=== PATIENT | female | born 1990 | race Caucasian/White ===

== ENCOUNTER 2021-10-31 11:01 | Observation (INO) | payer MEDICAID ==
[~2021-10-31] VITALS: Ht 152.4 cm; Wt 53.1 kg
[2021-10-31 11:43] VITALS: BP 109/76
[2021-10-31] MEDS ORDERED: TERBUTALINE 1 MG/ML VIAL SUBQ SCH (12:00)
[2021-10-31] MEDS ORDERED: NACL 0.9% 1,000 ML IV SCH (12:00)
== END 2021-10-31 14:30 | disposition home or self-care (01) ==
LOC: MLD 11:01
PROVIDERS: ADMIT Obstetrics & Gynecology; ATTEND Obstetrics & Gynecology
DX: O62.9 Abnormality of forces of labor, unspecified (principal); Z20.822 Contact with and (suspected) exposure to COVID-19; Z3A.36 36 weeks gestation of pregnancy
CPT/HCPCS: 87426; 96365; G0378; J0696; J7060